=== PATIENT | female | born 1985 | race Caucasian/White ===

== ENCOUNTER 2022-10-09 14:27 | Outpatient (CLI) | payer BC, SELFPAY ==
--- NOTE | 2022-10-09 13:15 | DI.RAD_ITS ---
Exam(s) XR SHOULDER LT COMPLETE 2+V EXAM: XR SHOULDER LT COMPLETE 2+V CLINICAL HISTORY: left shouler pain. TECHNIQUE: 2D digital imaging was performed of the left shoulder. Four images were obtained. AP, G rashey, Y-view and axillary views were obtained. COMPARISON: No exams were available for comparison FINDINGS: BONES: No acute fracture is present. No bony destructive lesion is seen. JOINTS: No dislocation present. There are degenerative changes seen at the acromioclavicular joint. There is mild widening of the AC joint. This may represent ligament injury. Please correlate with t he patient's clinical history and exam. SOFT TISSUE: Normal. IMPRESSION: Question mild widening of the AC joint suspicious for ligamentous injury. Please correlate clinicall y. DATA REPOSITORY: RADIATION DOSE DELIVERED:
== END 2022-10-09 14:28 | disposition home or self-care (01) ==
LOC: DIORS 14:27
PROVIDERS: PCP Student in an Organized Health Care Education/Training Program; Visit Provider Physician Assistant
DX: M19.012 Primary osteoarthritis, left shoulder
CPT/HCPCS: 73030